=== PATIENT | male | born 1980 | race Hispanic/Latino ===

== ENCOUNTER 2018-04-11 19:51 | Emergency (ER) | payer BC, OTHER ==
[2018-04-11] MEDS ORDERED: BUPIVACAINE 0.5% PF 10 ML VIAL ONE (20:04)
[2018-04-11] MEDS ORDERED: LIDOCAINE 1% MPF 5 ML VIAL ONE ×3 (20:05→20:54)
[2018-04-11] MEDS ORDERED: TETANUS & DIPHTHERIA TOX,ADULT 0.5 ML VIAL ONE (20:16)
--- NOTE | 2018-04-11 21:00 | RAD REPORT ---
EXAM DESCRIPTION: RAD - Hand Left 3 View - 04/11/2018 8:27 pm CLINICAL HISTORY: Trauma, smash injury with laceration third and fourth digits COMPARISON: None. FINDINGS: No fracture, dislocation or periosteal reaction noted. Third and fourth digit soft tissue injuries are evident but no foreign body seen. IMPRESSION: No left hand bone or joint acute finding. Soft tissue wound third and fourth digits with no foreign body.
--- NOTE | 2018-04-11 21:22 | ER ---
Nurse's Notes [facility] Name: Faustino Orellana Age: 37 yrs Sex: Male : 1980 Arrival Date: 04/11/2018 Time: 19:53 Bed 18 Private MD: Diagnosis: Crushing injury of left middle finger-with fingernail avulsion;Crushing injury of left ring finger Presentation: 04/11 19:58 Presenting complaint: Patient states: crushed fingers at work at approx 1915. tl2 lacerations noted to left 3rd and 4th finger. small amount of bleeding noted. Transition of care: patient was not received from another setting of care. Complicating Factors: There are no complicating factors for this patient. Onset of symptoms was April 11, 2018 at 19:15. Risk Assessment: Do you want to hurt yourself or someone else? Patient reports no desire to harm self or others. Initial Sepsis Screen: Does the patient meet any 2 criteria? No. Patient's initial sepsis screen is negative. Does the patient have a suspected source of infection? No. Patient's initial sepsis screen is negative. Care prior to arrival: None. 19:58 Acuity: JUSTINO 4 tl2 19:58 Method Of Arrival: Ambulatory tl2 20:02 Presenting complaint: Patient states: I was swinging a sledge hammer, it jumped off the wooden post, and my fingers got caught between the handle and the post. Triage Assessment: 19:48 General: Appears in no apparent distress. uncomfortable, Behavior is cooperative, ch quiet. Pain: Complains of pain in left hand and dorsal aspect of distal phalanx of left ring finger and dorsal aspect of distal phalanx of left middle finger Pain currently is 9 out of 10 on a pain scale. Derm: Skin is clammy, Skin is pale, Skin temperature is cool. 19:48 General: pt states it hurts and he does not like the sight of blood. Respiratory: Airway is patent Respiratory effort is even, unlabored. 19:58 Injury Description: Laceration sustained to dorsal aspect of distal phalanx of left tl2 ring finger and dorsal aspect of distal phalanx of left middle finger is clean, jagged, 0.5 to 2.5 cm long, bleeding moderately, was sustained 30-60 minutes ago. is bleeding a small amount. 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 - Social history:: Smoking status: Patient/guardian denies using tobacco, Patient/guardian denies using alcohol. - Ebola Screening: : Patient negative for fever greater than or equal to 101.5 degrees Fahrenheit, and additional compatible Ebola Virus Disease symptoms Patient denies exposure to infectious person Patient denies travel to an Ebola-affected area in the 21 days before illness onset No symptoms or risks identified at this time. Screenin:58 Abuse screen: Denies threats or abuse. Nutritional screening: No deficits noted. tl2 Tuberculosis screening: No symptoms or risk factors identified. Fall Risk None identified. Assessment: 19:55 General: Appears in no apparent distress. uncomfortable, Behavior is calm, cooperative, tl2 appropriate for age. Pain: Complains of pain in dorsal aspect of distal phalanx of left middle finger and dorsal aspect of distal phalanx of left ring finger. Neuro: Level of Consciousness is awake, alert, obeys commands, Oriented to person, place, time, situation. Respiratory: Airway is patent Respiratory effort is even, unlabored, Respiratory pattern is regular, symmetrical. Derm: Skin is pink, warm \T\ dry. Musculoskeletal: Circulation, motion, and sensation intact. Injury Description: Laceration sustained to dorsal aspect of distal phalanx of left middle finger and dorsal aspect of distal phalanx of left ring finger is clean, jagged, 0.5 to 2.5 cm long, bleeding moderately, was sustained 30-60 minutes ago. is bleeding moderately. 21:05 Reassessment: Patient appears in no apparent distress at this time. Patient and/or tl2 family updated on plan of care and expected duration. Pain level reassessed. Patient is alert, oriented x 3, equal unlabored respirations, skin warm/dry/pink. PIE CHEF at bedside for laceration repair. Vital Signs: 19:58 BP 137 / 115; Pulse 74; Resp 20; Pulse Ox 100% on R/A; Weight 83.91 kg; Height 5 ft. 9 tl2 in. (175.26 cm); Pain 10/10; 21:25 BP 123 / 78; Pulse 67; Resp 18; Pulse Ox 98% on R/A; tl2 19:58 Body Mass Index 27.32 (83.91 kg, 175.26 cm) tl2 ED Course: 19:53 Patient arrived in ED. tl2 19:55 Angie Mojica, RN is Primary Nurse. tl2 19:55 Jose Clark MD is Attending Physician. rn 19:58 Arm band placed on right wrist. tl2 20:00 Triage completed. tl2 20:00 Patient has correct armband on for positive identification. Bed in low position. Call tl2 light in reach. Side rails up X2. 20:01 Cecy Marin FNP-C is PHCP. snw 20:02 Jose Clark MD is Attending Physician. snw 20:24 X-ray completed. Portable x-ray completed in exam room. Patient tolerated procedure la2 well. 20:28 Hand Left 3 View XRAY In Process Unspecified. EDMS 21:04 Assist provider with laceration repair on dorsal aspect of distal phalanx of left ring tl2 finger and dorsal aspect of distal phalanx of left middle finger that was 2.5 cm. or less using sutures. Set up tray. Performed by Cecy JACKSON Dressed with Neosporin, Patient tolerated well. 21:22 Patient did not have IV access during this emergency room visit. Dressings: tl2 non-adherent dressing x 1 dorsal aspect of distal phalanx of left ring finger. Administered Medications: 20:04 Drug: Marcaine (0.5 %) 1 vials Volume: 10 ml; Route: Infiltration; tl2 20:04 Drug: Lidocaine (1 %) 1 vials {Note: adminstered by NP. Cecy} Volume: 5 ml; Route: tl2 Infiltration; 20:09 Drug: Tetanus-Diphtheria Toxoid Adult 0.5 ml {[employer] Special Agent: [employer]. Exp: tl2 04/18/2020. Lot #: [id number]. } Route: IM; Site: right deltoid; 21:05 Follow up: Response: No adverse reaction tl2 20:47 Drug: Hibiclens 4 % 1 application Route: Topical; Site: affected area; tl2 21:39 Drug: [place] 5 mg-325 mg 1 tabs Route: PO; tl2 21:39 Follow up: Response: No adverse reaction; Medication administered at discharge. tl2 21:39 Drug: Motrin 400 mg Route: PO; tl2 21:39 Follow up: Response: No adverse reaction; Medication administered at discharge. tl2 Outcome: 21:20 Discharge ordered by . snw 21:23 Discharged to home ambulatory, with family. tl2 21:23 Condition: stable 21:23 Discharge instructions given to patient, Instructed on discharge instructions, follow up and referral plans. medication usage, wound care, Demonstrated understanding of instructions, follow-up care, medications, wound care. 21:39 Patient left the ED. tl2 Signatures: Dispatcher [employer] EDSuzan Lockhart, RN RN Cecy Humphrey, MARKETING PROFESSOR-C MARKETING PROFESSOR-Csnw Jose Clark MD MD rn Knox, Taylor, RN RN tl2 Kaye Dorsey
--- NOTE | 2018-04-11 21:22 | EDPHYS ---
Physician Documentation [facility] Name: Faustino Orellana Age: 37 yrs Sex: Male : 1980 Arrival Date: 04/11/2018 Time: 19:53 Bed 18 Private MD: ED Physician Jose Clark HPI: 04/11 20:35 This 37 yrs old Male presents to ER via Ambulatory with complaints of snw Laceration To Hand. 20:35 The patient has a laceration related to: doing carpentry, and crush injury. The snw laceration(s) is(are) located on the dorsal aspect of distal phalanx of left ring finger and dorsal aspect of distal phalanx of left middle finger. Onset: The symptoms/episode began/occurred suddenly, just prior to arrival. Associated signs and symptoms: The patient has no apparent associated signs or symptoms. The patient has not experienced similar symptoms in the past. It is unknown whether or not the patient has recently seen a physician. 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 - Social history:: Smoking status: Patient/guardian denies using tobacco, Patient/guardian denies using alcohol. - Ebola Screening: : Patient negative for fever greater than or equal to 101.5 degrees Fahrenheit, and additional compatible Ebola Virus Disease symptoms Patient denies exposure to infectious person Patient denies travel to an Ebola-affected area in the 21 days before illness onset No symptoms or risks identified at this time. ROS: 20:34 Constitutional: Negative for fever, chills, and weight loss, Eyes: Negative for injury, snw pain, redness, and discharge, ENT: Negative for injury, pain, and discharge, Neck: Negative for injury, pain, and swelling, Cardiovascular: Negative for chest pain, palpitations, and edema, Respiratory: Negative for shortness of breath, cough, wheezing, and pleuritic chest pain, Abdomen/GI: Negative for abdominal pain, nausea, vomiting, diarrhea, and constipation, Back: Negative for injury and pain, : Negative for injury, bleeding, discharge, and swelling, Skin: Negative for injury, rash, and discoloration, Neuro: Negative for headache, weakness, numbness, tingling, and seizure, Psych: Negative for depression, anxiety, suicide ideation, homicidal ideation, and hallucinations. 20:34 MS/extremity: Positive for injury or acute deformity, contusion, pain, crush injury of left third and fourth finger. Exam: 20:19 Constitutional: This is a well developed, well nourished patient who is awake, alert, snw and in no acute distress. Head/Face: Normocephalic, atraumatic. Eyes: Pupils equal round and reactive to light, extra-ocular motions intact. Lids and lashes normal. Conjunctiva and sclera are non-icteric and not injected. Cornea within normal limits. Periorbital areas with no swelling, redness, or edema. ENT: Nares patent. No nasal discharge, no septal abnormalities noted. Tympanic membranes are normal and external auditory canals are clear. Oropharynx with no redness, swelling, or masses, exudates, or evidence of obstruction, uvula midline. Mucous membranes moist. Neck: Trachea midline, no thyromegaly or masses palpated, and no cervical lymphadenopathy. Supple, full range of motion without nuchal rigidity, or vertebral point tenderness. No Meningismus. Chest/axilla: Normal chest wall appearance and motion. Nontender with no deformity. No lesions are appreciated. Cardiovascular: Regular rate and rhythm with a normal S1 and S2. No gallops, murmurs, or rubs. Normal PMI, no JVD. No pulse deficits. Respiratory: Lungs have equal breath sounds bilaterally, clear to auscultation and percussion. No rales, rhonchi or wheezes noted. No increased work of breathing, no retractions or nasal flaring. Abdomen/GI: Soft, non-tender, with normal bowel sounds. No distension or tympany. No guarding or rebound. No evidence of tenderness throughout. Back: No spinal tenderness. No costovertebral tenderness. Full range of motion. Neuro: Awake and alert, GCS 15, oriented to person, place, time, and situation. Cranial nerves II-XII grossly intact. Motor strength 5/5 in all extremities. Sensory grossly intact. Cerebellar exam normal. Normal gait. Psych: Awake, alert, with orientation to person, place and time. Behavior, mood, and affect are within normal limits. 20:19 Musculoskeletal/extremity: Extremities: grossly normal except: contusion, tenderness, area proximal to left middle nailbed avulsed, tender, bleeding controlled, ROM: no acute changes, Circulation is intact in all extremities. Sensation intact. 20:19 Skin: Appearance: normal except for affected area, injury, avulsion(s), a small of the left middle distal phalanx and small abrasion/avulsion to left ring finger at medial phalanx. Vital Signs: 19:58 BP 137 / 115; Pulse 74; Resp 20; Pulse Ox 100% on R/A; Weight 83.91 kg; Height 5 ft. 9 tl2 in. (175.26 cm); Pain 10/10; 21:25 BP 123 / 78; Pulse 67; Resp 18; Pulse Ox 98% on R/A; tl2 19:58 Body Mass Index 27.32 (83.91 kg, 175.26 cm) tl2 Procedures: 20:18 Nerve block: (digital) of dorsal aspect of distal phalanx of left middle finger and snw left middle fingernail Medication: Lidocaine 1% without epinephrine Marcaine 0.5%, Amount: 8 mls were injected, Effect: the patient has resolution of the pain, Performed by Cecy JACKSON Patient tolerated well. Laceration: 21:23 Wound Repair of 2cm ( 0.8in ) mucosal laceration to dorsal aspect of distal phalanx of snw left ring finger and dorsal aspect of distal phalanx of left middle finger. nailbed with laceration and significant bleeding. Distal neuro/vascular/tendon intact. Anesthesia: Digital block administered with 5 mls of 1% lidocaine, 5 mls of 0.5% marcaine. Wound prep: Simple cleansing with hibiclenz, Wound explored moderately. Skin closed with 6 4-0 Prolene using simple sutures and sterile technique. Dressed with pressure dressing, non-adherent dressing. Patient tolerated well. MDM: 19:55 Patient medically screened. rn 21:23 Data reviewed: vital signs, nurses notes. Data interpreted: Pulse oximetry: on room air snw is 100 %. Interpretation: normal. Counseling: I had a detailed discussion with the patient and/or guardian regarding: the historical points, exam findings, and any diagnostic results supporting the discharge/admit diagnosis, the presence of at least one elevated blood pressure reading (>120/80) during this emergency department visit, radiology results, the need for outpatient follow up, to return to the emergency department if symptoms worsen or persist or if there are any questions or concerns that arise at home. Special discussion: I have referred the patient to see his PCP for further evaluation of high blood pressure. I discussed in detail with the patient the higher chance of wound infection based on his presenting history. Based on the history and exam findings, there is no indication for further emergent testing or inpatient evaluation. I discussed with the patient/guardian the need to see the primary care provider for further evaluation of the symptoms. 04/11 20:03 Order name: Hand Left 3 View XRAY; Complete Time: 21:19 snw 04/11 21:23 Order name: Wound dressing; Complete Time: 21:24 snw Administered Medications: 20:04 Drug: Marcaine (0.5 %) 1 vials Volume: 10 ml; Route: Infiltration; tl2 20:04 Drug: Lidocaine (1 %) 1 vials {Note: adminstered by LENARD Sam.} Volume: 5 ml; Route: tl2 Infiltration; 20:09 Drug: Tetanus-Diphtheria Toxoid Adult 0.5 ml {Crematory Attendant: [employer]. Exp: 2 04/18/2020. Lot #: [id number]. } Route: IM; Site: right deltoid; 21:05 Follow up: Response: No adverse reaction tl2 20:47 Drug: Hibiclens 4 % 1 application Route: Topical; Site: affected area; tl2 21:39 Drug: [place] 5 mg-325 mg 1 tabs Route: PO; tl2 21:39 Follow up: Response: No adverse reaction; Medication administered at discharge. tl2 21:39 Drug: Motrin 400 mg Route: PO; tl2 21:39 Follow up: Response: No adverse reaction; Medication administered at discharge. tl2 Disposition: 04/12 03:12 Co-signature as Attending Physician, Jose Clark MD. rn Disposition: 04/11/18 21:20 Discharged to Home. Impression: Crushing injury of left middle finger - with fingernail avulsion, Crushing injury of left ring finger. - Condition is Stable. - Discharge Instructions: How to Change Your Dressing, VIS, Tetanus, Diphtheria (Td) - CDC, Crush Injury of the Hand. - Prescriptions for Keflex 500 mg Oral Capsule - take 1 capsule by ORAL route every 8 hours for 10 days; 30 capsule. Ultram 50 mg Oral Tablet - take 1 tablet by ORAL route every 6 hours As needed; 16 tablet. - Work release form, Medication Reconciliation Form, Thank You Letter, Antibiotic Education, Prescription Opioid Use form. - Follow up: Private Physician; When: 10 - 14 days; Reason: Recheck today's complaints, Continuance of care, Staple/Suture removal, Re-evaluation by your physician. Follow up: Emergency Department; When: As needed; Reason: Worsening of condition. Signatures: Dispatcher [employer] EDMS Suzan Mota RN Cecy Gibbons ch, FNP-C CIGAR HEAD STRINGER-Nohemiw Jose Clark MD MD rn Knox, Taylor, RN RN tl2 Corrections: (The following items were deleted from the chart) 04/11 21:21 21:20 04/11/2018 21:20 Discharged to Home. Impression: Crushing injury of left middle snw finger; Crushing injury of left ring finger. Condition is Stable. Forms are Medication Reconciliation Form, Thank You Letter, Antibiotic Education, Prescription Opioid Use. Follow up: Private Physician; When: 10 - 14 days; Reason: Recheck today's complaints, Continuance of care, Staple/Suture removal, Re-evaluation by your physician. Follow up: Emergency Department; When: As needed; Reason: Worsening of condition. snw 21:39 21:21 04/11/2018 21:20 Discharged to Home. Impression: Crushing injury of left middle tl2 finger - with fingernail avulsion; Crushing injury of left ring finger. Condition is Stable. Forms are Medication Reconciliation Form, Thank You Letter, Antibiotic Education, Prescription Opioid Use. Follow up: Private Physician; When: 10 - 14 days; Reason: Recheck today's complaints, Continuance of care, Staple/Suture removal, Re-evaluation by your physician. Follow up: Emergency Department; When: As needed; Reason: Worsening of condition. snw
[2018-04-11] MEDS ORDERED: IBUPROFEN 400 MG TAB ONE (21:45)
[2018-04-11] MEDS ORDERED: HYDROCODONE/APAP 5/325 MG TAB ONE (21:45)
== END 2018-04-11 21:39 | disposition home or self-care (01) ==
LOC: ER 19:51
PROC: 0JQK0ZZ Repair Left Hand Subcutaneous Tissue and Fascia, Open Approach (ICD-10-PCS; principal; 2018-04-11)
DX: S67.193A Crushing injury of left middle finger, initial encounter (principal); S61.303A Unspecified open wound of left middle finger with damage to nail, initial encounter; X58.XXXA Exposure to other specified factors, initial encounter; Y93.89 Activity, other specified; Y92.9 Unspecified place or not applicable; Z23 Encounter for immunization
CPT/HCPCS: 64450; 90714; 99283